=== PATIENT | male | born 1945 | race Caucasian/White ===

== ENCOUNTER 2023-04-13 06:08 | Day surgery (SDC) | payer OTHER ==
[~2023-04-13] VITALS: Ht 162.6 cm; Wt 63.0 kg
[2023-04-13 06:58] VITALS: O2SAT 97
[2023-04-13] MEDS ORDERED: MEPERIDINE 100 MG INJ. 100 MG/ML VIAL ONE (07:24)
[2023-04-13] MEDS ORDERED: SIMETHICONE 40 MG/0.6 ML ML ONE (07:27)
[2023-04-13] MEDS: fentaNYL CITRATE/PF 100 MCG/2 ML AMP ONE ×2 (07:36→07:38)
[2023-04-13] MEDS: MIDAZOLAM HCL 5 MG/5 ML VIAL ONE ×3 (07:36→07:40)
[2023-04-13 14:56] VITALS: BP_SYST 132; PULSE 66; RESP 16; TEMP 98.3
== END 2023-04-13 08:43 | disposition home or self-care (01) ==
LOC: SDS 06:08 → SMU 06:10 → SDS 08:43
PROVIDERS: ATTEND Internal Medicine Gastroenterology
DX: D64.9 Anemia, unspecified (principal); K29.50 Unspecified chronic gastritis without bleeding; K29.80 Duodenitis without bleeding; K21.00 Gastro-esophageal reflux disease with esophagitis, without bleeding; F41.9 Anxiety disorder, unspecified; F32.A Depression, unspecified; E78.00 Pure hypercholesterolemia, unspecified; M19.90 Unspecified osteoarthritis, unspecified site; F17.210 Nicotine dependence, cigarettes, uncomplicated; Z79.899 Other long term (current) drug therapy
CPT/HCPCS: 43239; 87081; 36415; 88305; 88312; 88313; 99152; G0378; J2250; J3010; J2175